=== PATIENT | male | born 1980 | race Caucasian/White ===

== ENCOUNTER 2020-04-04 19:22 | Emergency (ER) | payer SELFPAY ==
[~2020-04-04] VITALS: Ht 177.8 cm; Wt 111.0 kg
[2020-04-04] MEDS ORDERED: LISINOPRIL20 MG PO (19:41)
[2020-04-04 19:54] LABS: HEMATOCRIT 41.2 % (39.0-50.0); HEMOGLOBIN 14.1 g/dl (14.0-18.0); IMMATURE GRANULOCYTES 0.2 % (0.0-5.0); MEAN CELL VOLUME 85.3 fL CALC (80.0-100.0); MEAN CORPUSCULAR HGB 29.2 pG CALC (26.0-32.0); MEAN CORPUSCULAR HGB CONC 34.2 g/dL CAL (32.0-36.0); NEUT# 7.67 thou/uL (1.82-7.42); RED BLOOD COUNT 4.83 mill/uL (4.70-6.10); RED CELL DISTRI WIDTH 13.2 % (11.5-15.5)
[2020-04-04] MEDS ORDERED: AMOXICILLIN500 MG PO (20:37)
[2020-04-04 20:50] VITALS: BP 169/74
== END 2020-04-04 20:50 | disposition home or self-care (01) | DRG 866 ==
LOC: ED 19:22
PROVIDERS: Family Medicine
DX: B34.9 Viral infection, unspecified (principal); K04.7 Periapical abscess without sinus; K02.9 Dental caries, unspecified; I10 Essential (primary) hypertension; Z20.828 Contact with and (suspected) exposure to other viral communicable diseases

== ENCOUNTER 2020-04-12 09:46 | Emergency (ER) | payer SELFPAY ==
[~2020-04-12] VITALS: Ht 177.8 cm; Wt 111.0 kg
[~2020-04-12 09:46] MED LIST: AMOXICILLIN500 MG PO; LISINOPRIL20 MG PO
[2020-04-12] MEDS ORDERED: FLEXERIL5 M1 PO (11:31)
[2020-04-12] MEDS ORDERED: MOTRIN800 MG PO (11:31)
[2020-04-12 11:48] VITALS: BP 132/88
== END 2020-04-12 11:48 | disposition home or self-care (01) | DRG 552 ==
LOC: ED 09:46
DX: S16.1XXA Strain of muscle, fascia and tendon at neck level, initial encounter (principal); S39.012A Strain of muscle, fascia and tendon of lower back, initial encounter; I10 Essential (primary) hypertension; F17.220 Nicotine dependence, chewing tobacco, uncomplicated; V59.50XA Passenger in pick-up truck or van injured in collision with unspecified motor vehicles in traffic accident, initial encounter